=== PATIENT | male | born 1985 ===

== ENCOUNTER 2017-01-09 06:48 | Emergency (ER) | payer SELFPAY ==
[~2017-01-09] VITALS: Ht 188 cm; Wt 72.7 kg
[2017-01-09 06:53] VITALS: Ht 188 cm; Wt 72.7 kg
== END 2017-01-09 07:56 | disposition left against medical advice (07) ==
LOC: FTE 06:48
DX: Z53.21 Procedure and treatment not carried out due to patient leaving prior to being seen by health care provider (principal)